=== PATIENT | male | born 1975 | race Caucasian/White ===

== ENCOUNTER 2016-09-11 08:41 | Day surgery (SDC) | payer OTHER ==
[~2016-09-11] VITALS: Ht 180.3 cm; Wt 108.0 kg
[2016-09-11] MEDS ORDERED: HYDROCODON-ACE1 EAC6 PO (11:40)
[2016-09-11] MEDS ORDERED: FLOMAX0.4 MG PO (11:40)
[2016-09-11 11:47] VITALS: BP 133/84; Ht 180.3 cm; Wt 108.0 kg
--- NOTE | 2016-09-11 17:50 | NUR ---
RECEIVED PT FROM OR, ORAL AIRWAY IN PLACE AND O2 APPLIED.
--- NOTE | 2016-09-11 18:53 | NUR ---
1900--IV DC'D, PT UP TO DRESS AT THIS TIME. MIKE RN
--- NOTE | 2016-09-11 19:18 | NUR ---
1914--DISCHARGE INSTRUCTIONS GIVEN, PT VERBALIZES UNDERSTANDING. PT OFF UNIT VIA DEONNA. MIKE BOO
== END 2016-09-11 19:15 | disposition home or self-care (01) ==
LOC: D.OPS 08:41
PROVIDERS: Urology
DX: N20.2 Calculus of kidney with calculus of ureter (principal); Z87.442 Personal history of urinary calculi; N13.2 Hydronephrosis with renal and ureteral calculous obstruction; Z01.812 Encounter for preprocedural laboratory examination

== ENCOUNTER 2016-10-01 10:07 | Day surgery (SDC) | payer OTHER ==
[~2016-10-01] VITALS: Ht 180.3 cm; Wt 106.6 kg
[~2016-10-01 10:07] MED LIST: FLOMAX0.4 MG PO; HYDROCODON-ACE1 EAC6 PO
[2016-10-01 12:08] VITALS: BP 117/72; Ht 180.3 cm; Wt 106.6 kg
--- NOTE | 2016-10-01 17:10 | NUR ---
1515- PT BACK UP FROM LITHOTRIPSY TRUCK. VSS. AT BEDSIDE. WILL MONITOR. 1545- FULL LIQUIDS TOLERATED. UP OOB TO BR, VOIDED WITHOUT DIFFICULTY 1555- IV D/C'D, PT TOLERATED. CATHETER INTACT. 1600- DISCHARGE INSTRUCTIONS COMPLETED, PAPERWORK SIGNED. PT DISCHARGED VIA WHEELCHAIR WITH .
--- NOTE | 2016-10-02 08:48 | OP ---
PATIENT NAME: LOUIE DENNIS MEDICAL RECORD: [id number] :77 LOCATION:D.OPS ADMISSION DATE: SURGEON: ADOLPH MONTES MD DATE OF OPERATION: 10/01/2016 SURGEON: Adolph Montes MD ANESTHESIA: MAC. PREOPERATIVE DIAGNOSIS: Right renal stone, 5 mm. POSTOPERATIVE DIAGNOSIS: Right renal stone, 5 mm. FINDINGS: Radiodense right mid pole 5-mm stone. PROCEDURE: Right extracorporeal shockwave lithotripsy (ESWL) times 3000 shocks. SPECIMENS: None. COMPLICATIONS: None. ESTIMATED BLOOD LOSS: None. CLINICAL HISTORY: This is a 41-year-old male with a prior history of kidney stones. I recently performed right ureteroscopy and stone extraction as well as stent insertion. He still has stones in both kidneys. Since he has a stent in the right side, we are going to treat the stone in the right kidney, first. He was given Ancef 1 gram IV transportation dispatch manager to the OR. DESCRIPTION OF PROCEDURE: He was then placed on the treatment table of the lithotripter. The stone was targeted in 2 planes. It is radiodense. The stone was then given 3000 shocks and was seen to fragment. The patient was brought to the recovery room. I gave him a prescription for Bethesda 5/325, #20 tablets with no refills. He still has Flomax at home. We will obtain a KUB in 1 week. If the stone has passed then I can remove his stent in his office visit. TRANSINT:[id number] Voice Confirmation ID: [id number] DOCUMENT ID: [id number] ADOLPH MONTES MD at 0848 CC: [id number] DICTATION DATE: 10/01/16 152 DAYCARE MANAGER: 10/01/161954 [facility] 10/01/16 [place] [id number]
== END 2016-10-01 16:00 | disposition home or self-care (01) ==
LOC: D.OPS 10:07
DX: N20.0 Calculus of kidney (principal); F17.200 Nicotine dependence, unspecified, uncomplicated; Z01.812 Encounter for preprocedural laboratory examination

== ENCOUNTER → 2016-10-09 10:20 | Outpatient (CLI) | payer OTHER ==
[2016-10-01 12:08] VITALS: BMI 32.8
== END | disposition home or self-care (01) ==
LOC: D.RAD 10:20
DX: N20.0 Calculus of kidney (principal)

== ENCOUNTER 2016-10-12 06:14 | Day surgery (SDC) | payer OTHER ==
[~2016-10-12] VITALS: Ht 180.3 cm; Wt 109.8 kg
[2016-10-12 07:05] VITALS: BP 119/68; Ht 180.3 cm; Wt 109.8 kg
== END 2016-10-12 10:35 | disposition home or self-care (01) ==
LOC: D.OPS 06:14 → D.PAN 08:00 → D.OPS 08:00
DX: Z46.6 Encounter for fitting and adjustment of urinary device (principal); Z88.0 Allergy status to penicillin; Z01.812 Encounter for preprocedural laboratory examination